=== PATIENT | male | born 1940 | race Caucasian/White ===

== ENCOUNTER 2020-10-11 11:33 | Outpatient (CLI) | payer MEDICARE, OTHER | END 2020-10-11 11:34 | disposition home or self-care (01) | LOC: CSHMRI 11:33 | PROVIDERS: ATTEND Otolaryngology Plastic Surgery within the Head & Neck | DX: H90.3 Sensorineural hearing loss, bilateral (principal); H83.91 Unspecified disease of right inner ear | CPT/HCPCS: 70553; 82565 ==